=== PATIENT | male | born 1955 | race Caucasian/White ===

== ENCOUNTER 2019-05-22 09:34 | Emergency (ER) | payer MEDICARE ==
--- NOTE | 2019-05-22 10:13 | ER Document Report ---
ED Medical Screen (RME) - General Chief Complaint: Urinary Problem Stated Complaint: BLOOD IN URINE/CONSTIPATED Time Seen by Provider: 05/22/19 10:08 - HPI Notes: 05/22/19 10:11 Patient is a 63-year-old male with a history of cirrhosis, hypertension, type 2 diabetes, splenomegaly who presents complaining of having hematuria since Saturday and not able to produce a bowel movement since Saturday. No fever, chest pain, shortness of breath, nausea/vomiting/diarrhea. I have treated and performed a rapid initial assessment of this patient. A comprehensive ED assessment and evaluation of the patient, analysis of test results and completion of medical decision making process will be conducted by additional ED providers. PHYSICAL EXAMINATION: GENERAL: Well-appearing, well-nourished and in no acute distress. Answers questions appropriately. - Related Data Allergies/Adverse Reactions: No Known Allergies Allergy (Verified 05/22/19 10:09) Physical Exam - Vital signs Vitals: Temp Pulse Resp BP Pulse Ox 97.7 F 99 18 142/80 H 97 05/22/19 10:08 05/22/19 10:08 05/22/19 10:08 05/22/19 10:08 05/22/19 10:08 Course - Vital Signs Vital signs: Temp Pulse Resp BP Pulse Ox 97.7 F 99 18 142/80 H 97 05/22/19 10:08 05/22/19 10:08 05/22/19 10:08 05/22/19 10:08 05/22/19 10:08
[2019-05-22 11:09] LABS: ABSOLUTE BASOPHILS # (AUTO) 0.1 10^3/uL (0.0-0.2); ABSOLUTE EOSINOPHILS # (AUTO) 0.2 10^3/uL (0.0-0.6); ABSOLUTE LYMPHOCYTES (AUTO) 1.1 10^3/uL (0.5-4.7); ABSOLUTE MONOCYTES (AUTO) 0.7 10^3/uL (0.1-1.4); ABSOLUTE NEUT (AUTO) 10.7 10^3/uL (1.7-8.2); BASOPHILS % (AUTO) 0.4 % (0-2); EOSINOPHILS % (AUTO) 1.3 % (0-6); HEMATOCRIT 47.2 % (37.9-51.0); HEMOGLOBIN 16.5 g/dL (13.5-17.0); LYMPHOCYTES % (AUTO) 8.8 % (13-45); MEAN CORPUSCULAR HGB CONC 35.1 g/dL (32.0-36.0); MEAN CORPUSCULAR VOLUME 88 fl (80-97); MONOCYTES % (AUTO) 5.5 % (3-13); RED BLOOD COUNT 5.33 10^6/uL (4.35-5.55); RED CELL DISTRIBUTION WIDTH 14.6 % (11.5-14.0); TOTAL CELLS COUNTED % (AUTO) 100 %; WHITE BLOOD COUNT 12.7 10^3/uL (4.0-10.5)
[2019-05-22 11:10] LABS: PROTHROMBIN TIME 15.3 SEC (11.4-15.4)
[2019-05-22 11:13] LABS: APPEARANCE,URINE CLOUDY; BILIRUBIN,URINE NEGATIVE (NEGATIVE); COLOR,URINE YELLOW; GLUCOSE, URINE >=500 mg/dL (NEGATIVE); KETONES,URINE NEGATIVE (NEGATIVE); LEUKOCYTE ESTERASE,URINE MODERATE (NEGATIVE); NITRITE,URINE POSITIVE (NEGATIVE); PROTEIN,URINE 100 mg/dL (NEGATIVE); URINE SPECIFIC GRAVITY 1.023
--- NOTE | 2019-05-22 11:30 | RADIOLOGY REPORT (SQ) ---
EXAM DESCRIPTION: KUB/ABDOMEN (SINGLE VIEW) COMPLETED DATE/TIME: 05/22/2019 11:12 am REASON FOR STUDY: ?constipation, no BM in 3 days COMPARISON: None. NUMBER OF VIEWS: One view. TECHNIQUE: Supine radiographic image of the abdomen acquired. LIMITATIONS: None. FINDINGS: BOWEL GAS PATTERN: Normal bowel gas pattern. No dilated loops. CALCIFICATIONS: No suspicious calcifications. SOFT TISSUES: No gross mass or suggestion of organomegaly. HARDWARE: None in the abdomen. BONES: No acute fracture. No worrisome bone lesions. OTHER: No other significant finding. IMPRESSION: NO RADIOGRAPHIC EVIDENCE FOR ACUTE ABDOMINAL DISEASE. TECHNICAL DOCUMENTATION: JOB ID: [id number] [employer]- All Rights Reserved Reading location - IP/workstation name: [email or web address]
[2019-05-22 11:32] LABS: ALBUMIN 4.1 g/dL (3.5-5.0); ALKALINE PHOSPHATASE 143 U/L (38-126); ANION GAP 12 (5-19); ASPARTATE AMINO TRANSFERASE 30 U/L (17-59); BILIRUBIN,DIRECT 0.2 mg/dL (0.0-0.4); BILIRUBIN,TOTAL 2.4 mg/dL (0.2-1.3); BLOOD UREA NITROGEN 10 mg/dL (7-20); CALCIUM 9.2 mg/dL (8.4-10.2); CARBON DIOXIDE 24 mmol/L (22-30); CHLORIDE 105 mmol/L (98-107); GLUCOSE 233 mg/dL (75-110); POTASSIUM 4.3 mmol/L (3.6-5.0); TOTAL PROTEIN 7.6 g/dL (6.3-8.2)
[2019-05-22 11:49] LABS: PLATELET COUNT 97 10^3/uL (150-450)
--- NOTE | 2019-05-22 14:42 | RADIOLOGY REPORT (SQ) ---
EXAM DESCRIPTION: CT ABD/PELVIS NO ORAL OR IV COMPLETED DATE/TIME: 05/22/2019 1:59 pm REASON FOR STUDY: hematuria COMPARISON: None. TECHNIQUE: CT scan of the abdomen and pelvis performed without intravenous or oral contrast. Images reviewed with lung, soft tissue, and bone windows. Reconstructed coronal and sagittal MPR images revi ewed. All images stored on PACS. All CT scanners at this facility use dose modulation, iterative reconstruction, and/or weight based d osing when appropriate to reduce radiation dose to as low as reasonably achievable (ALARA). [facility]: Dose Right [facility]: CareDose [facility]: Dose Right [facility]: Teradose 4D [facility]: Smart [employer] RADIATION DOSE: CT Rad equipment meets quality standard of care and radiation dose reduction techniq ues were employed. CTDIvol: 17.3 mGy. DLP: 931 mGy-cm.. LIMITATIONS: None. FINDINGS: LOWER CHEST: No acute findings. NON-CONTRASTED LIVER, SPLEEN, ADRENALS: Evaluation is limited due to the absence of intravenous contr ast. The nodular contour of the liver is consistent with cirrhosis. The low attenuation of hepatic parenchyma is suggestive of hepatic steatosis. The spleen is enlarged and it measures 14.6 cm in [facility] niocaudal diameter. There is an accessory splenule anterior to the spleen that measures 13 mm in carmina meter. There is no abnormality of the adrenal glands. PANCREAS: No acute gross abnormality of the pancreas. GALLBLADDER: Cholelithiasis. There is no pericholecystic inflammation. RIGHT KIDNEY AND URETER: Evaluation is limited due to the absence of intravenous contrast. There is a probable parapelvic cyst in the lower pole of the kidney that measures 7.1 x 6 cm. There is no hyd ronephrosis, nephrolithiasis, hydroureter or urolithiasis. LEFT KIDNEY AND URETER: Evaluation is limited due to the absence of intravenous contrast. There is n o hydronephrosis, nephrolithiasis, hydroureter or ureterolithiasis. AORTA AND RETROPERITONEUM: No aneurysm of the abdominal aorta. No retroperitoneal adenopathy, hemorr david or mass. BOWEL AND PERITONEAL CAVITY: No bowel obstruction, bowel wall thickening, or pericolonic/ perienteric inflammation. No mesenteric adenopathy, free intraperitoneal fluid, or mesenteric/ omental inflamma tion. APPENDIX: Unable to identify the appendix. PELVIS, BLADDER, AND ABDOMINAL WALL:The wall of the urinary bladder is diffusely thickened and there is stranding of the perivesicular fat ; the 2 water attenuation structures that project on either estefani e of the urinary bladder and measure 5.3 x 4.1 cm on the right and 3.2 x 2.7 cm on the left could rep resent bladder diverticula. The prostate gland is enlarged and heterogeneous. BONES: Transitional anatomy of the lumbar and sacral junction with partial sacralization of the L5 ve rtebral body. There is no acute fracture. OTHER: The recanalization of the paraumbilical vein is suggestive of portal hypertension. IMPRESSION: 1. Circumferential thickening of the wall of the urinary bladder and associated strandin g of the perivesicular fat - correlate with urinalysis to exclude an infection. 2. The water attenuation structures that project on either side of the urinary bladder that measure 5.3 x 4.1 cm on the right and 3.2 x 2.7 cm on the left could represent bladder diverticula. 3. Prostatomegaly. 4. Cholelithiasis. 5. Cirrhosis with findings of portal hypertension including splenomegaly and recanalization of the p araumbilical vein. COMMENT: Quality ID # [id number]: Final reports with documentation of one or more dose reduction techniques (e.g., Automated exposure control, adjustment of the mA and/or kV according to patient size, use of iterative reconstruction technique) TECHNICAL DOCUMENTATION: JOB ID: [id number] [employer]- All Rights Reserved Reading location - IP/workstation name: [email or web address]
--- NOTE | 2019-05-22 15:20 | ER Document Report ---
Entered by VIVIAN VERMA SCRIBE 05/22/19 1329 Acting as scribe for:SOCORRO CRUZ IV, MD ED GI/ - General Chief Complaint: Urinary Problem Stated Complaint: BLOOD IN URINE/CONSTIPATED Time Seen by Provider: 05/22/19 10:08 Primary Care Provider: TAWNYA PAINTER PA-C [Primary Care Provider] - Follow up as needed Mode of Arrival: Ambulatory Information source: Patient Notes: This 63 year old male patient presents to the emergency department today with complaints of "pissing blood like there is no tomorrow" for the last few days. Patient reports that he has also had some abdominal pain associated with this. Patient states he has not had a bowel movement in the last few days despite taking lactulose x3 a day. Patient mentions that he has had a urinary tract infection in the past. - Related Data Allergies/Adverse Reactions: No Known Allergies Allergy (Verified 05/22/19 10:09) Past Medical History - General Information source: Patient - Social History Smoking Status: Never Smoker Cigarette use (# per day): No Frequency of alcohol use: None Drug Abuse: None Lives with: Family Family History: Reviewed & Not Pertinent Patient has suicidal ideation: No Patient has homicidal ideation: No Endocrine Medical History: Reports: Hx Diabetes Mellitus Type 1 - prediabetic Past Surgical History: Reports: Hx Cardiac Surgery - stent placement 2 stent 2005 Review of Systems - Review of Systems Constitutional: No symptoms reported EENT: No symptoms reported Cardiovascular: No symptoms reported Respiratory: No symptoms reported Gastrointestinal: See HPI, Abdominal pain Genitourinary: See HPI, Hematuria Male Genitourinary: No symptoms reported Musculoskeletal: No symptoms reported Skin: No symptoms reported Hematologic/Lymphatic: No symptoms reported Neurological/Psychological: No symptoms reported -: Yes All other systems reviewed and negative Physical Exam - Vital signs Vitals: Temp Pulse Resp BP Pulse Ox 97.7 F 99 18 142/80 H 97 05/22/19 10:08 05/22/19 10:08 05/22/19 10:08 05/22/19 10:08 05/22/19 10:08 Interpretation: Normal - General General appearance: Appears well, Alert - HEENT Head: Normocephalic, Atraumatic Eyes: Normal Pupils: PERRL - Respiratory Respiratory status: No respiratory distress Chest status: Nontender Breath sounds: Normal Chest palpation: Normal - Cardiovascular Rhythm: Regular Heart sounds: Normal auscultation Murmur: No - Abdominal Inspection: Normal Distension: No distension Bowel sounds: Normal Tenderness: Nontender Organomegaly: No organomegaly - Back Back: Normal, Nontender - Extremities General upper extremity: Normal inspection, Nontender, Normal color, Normal ROM, Normal temperature General lower extremity: Normal inspection, Nontender, Normal color, Normal ROM, Normal temperature, Normal weight bearing. No: Jayla's sign - Neurological Neuro grossly intact: Yes Cognition: Normal Orientation: AAOx4 [place] Coma Scale Eye Opening: Spontaneous [place] Coma Scale Verbal: Oriented Meryl Coma Scale Motor: Obeys Commands [place] Coma Scale Total: 15 Speech: Normal Motor strength normal: LUE, RUE, LLE, RLE Sensory: Normal - Psychological Associated symptoms: Normal affect, Normal mood - Skin Skin Temperature: Warm Skin Moisture: Dry Skin Color: Normal Course - Vital Signs Vital signs: Temp Pulse Resp BP Pulse Ox 97.7 F 99 18 142/80 H 97 05/22/19 10:08 05/22/19 10:08 05/22/19 10:08 05/22/19 10:08 05/22/19 10:08 - Laboratory Result Diagrams: 05/22/19 10:46 05/22/19 10:46 Laboratory results interpreted by me: 05/22/19 05/22/19 05/22/19 10:46 10:46 10:46 WBC 12.7 H RDW 14.6 H Plt Count 97 L Lymph % (Auto) 8.8 L Absolute Neuts (auto) 10.7 H Seg Neutrophils % 84.0 H Glucose 233 H Total Bilirubin 2.4 H Alkaline Phosphatase 143 H Urine Protein 100 H Urine Glucose (UA) >=500 H Urine Blood LARGE H Urine Nitrite POSITIVE H Urine Urobilinogen 2.0 H Ur Leukocyte Esterase MODERATE H - Diagnostic Test Radiology reviewed: Reports reviewed Discharge - Discharge Clinical Impression: Acute hemorrhagic cystitis Condition: Good Disposition: HOME, SELF-CARE Additional Instructions: Return to the Emergency Department without delay if any worse. HOME CARE INSTRUCTIONS & INFORMATION: Thank you for choosing us for your medical needs. We hope you're satisfied with the care you received. After you leave, you must properly care for your problem and, at the same time, observe its progress. Any condition can change. Some illnesses can change rapidly over hours or days. If your condition worsens, return to the Emergency Department or see your physician promptly. ABOUT YOUR X-RAYS AND EKG'S: If you had an EKG or X-rays taken, they have been read by the Emergency Physician. The X-rays and EKG's will also be read by a Radiologist or [employer] within 24 hours. If discrepancies are noted, you will be notified by telephone. Please be certain the ED has a correct telephone number & address where you can be reached. Also, realize that some fractures or abnormalities do not show up on initial X-rays. If your symptoms continue, see your physician. ABOUT YOUR LABORATORY TEST: If you had laboratory tests, the results have been reviewed by the Emergency Physician. Some test results (for example cultures) may not be available for several days. You will be contacted if any test result shows you need additional treatment. Please be certain the ED has a correct telephone number and address where you can be reached. ABOUT YOUR MEDICATIONS: You will receive instructions on how to take your medicine on the prescription label you receive. Additional information may be provided by the Pharmacy. If you have questions afterwards, call the ED for clarification or further instructions. Some prescribed medications may cause drowsiness. Do not perform tasks such as driving a car or operating machinery without consulting your Pharmacist. If you feel you need a refill of pain medication, your condition will need re-evaluation. Please do not call for a refill of any medication. ABOUT YOUR SIGNATURE: Signature of this document acknowledges to followin. Understanding that you received emergency treatment and that you may be released before al medical problems are known or treated. Please be certain the ED has a correct phone number & address where you can be reached. 2. Acknowledgement that you will arrange for follow-up care as recommended. 3. Authorization for the Emergency Physician to provide information to your follow-up Physician in order to maximize your care. AT ANY TIME, IF YOUR SYMPTOMS CHANGE SIGNIFICANTLY OR WORSEN OR YOU DEVELOP NEW SYMPTOMS, RETURN TO THE EMERGENCY DEPARTMENT IMMEDIATELY FOR RE-EVALUATION. OUR GOAL IS TO PROVIDE EXCELLENT MEDICAL CARE! WE HOPE THAT WE HAVE MET YOUR EXPECTATIONS DURING YOUR EMERGENCY DEPARTMENT VISIT AND THAT YOU FEEL YOU HAVE RECEIVED EXCELLENT CARE! Urinary Tract Infection Your evaluation indicates that you have a urinary tract infection. This is due to germs growing in the bladder. This is a common problem. This infection usually responds quickly to antibiotics. Your antibiotic should be taken exactly as prescribed. Drink plenty of fluids -- three to four quarts a day. Occasionally, a bladder anesthetic will be prescribed to help stop the fee ling of urgency until the antibiotic has a chance to clear the infection. This may cause your urine to be dark orange. Certain urine infections require a culture. If the doctor obtained a cultu re, the results will be back in two days. You should call to see if a change in treatment is needed. A repeat urinalysis after you finish treatment is often recommended. The physician will let you know if further testing is required. Call the doctor if you develop fever, chills, flank pain, inability to urinate, or blood in the urine. Prescriptions: Cephalexin Monohydrate [Keflex 500 mg Capsule] 500 mg PO QID 10 Days #40 capsule Referrals: TAWNYA PAINTER PA-C [Primary Care Provider] - Follow up as needed I personally performed the services described in the documentation, reviewed and edited the documentation which was dictated to the scribe in my presence, and it accurately records my words and actions.
[2019-05-22] MEDS ORDERED: CEPHALEXIN 500 MG CAPSULE PO ONE (15:44)
[2019-05-22 15:58] VITALS: BP 126/79
== END 2019-05-22 16:04 | disposition home or self-care (01) ==
LOC: ER 09:34
DX: N30.01 Acute cystitis with hematuria (principal); R39.198 Other difficulties with micturition; K59.00 Constipation, unspecified; R10.9 Unspecified abdominal pain; E10.9 Type 1 diabetes mellitus without complications
CPT/HCPCS: 99284; 36415; 87086; 83690; 85025; 85610; 87088; 80053; 81001; 87186; 74018; 74176; A9270